=== PATIENT | male | born 1995 | race Caucasian/White ===

== ENCOUNTER 2016-12-06 22:07 | Emergency (ER) | payer MEDICAID, OTHER ==
[~2016-12-06] VITALS: Ht 177.8 cm; Wt 72.6 kg
--- NOTE | 2016-12-06 22:17 | NUR ---
Dr. Aggarwal evaluating patient
[2016-12-06] MEDS ORDERED: PHENYTOIN 1,000 MG in NACL 0.9% 100 ML IV ONE (22:20)
[2016-12-06 22:26] VITALS: BP 109/77
[2016-12-06] MEDS ORDERED: PHENYTOIN 250 MG/5 ML VIAL IV ONE (22:58)
--- NOTE | 2016-12-06 22:59 | NUR ---
[facility] DRAWING PT LABS
[2016-12-06 23:10] LABS: BASOPHILS # (AUTO) 0.3 K/uL (0.00-0.22); BASOPHILS % (AUTO) 3.4 % (0.0-2.0); EOSINOPHILS # (AUTO) 0.4 K/uL (0-0.4); EOSINOPHILS % (AUTO) 5.2 % (0.0-4.0); HEMATOCRIT 48.8 % (36-52); HEMOGLOBIN 16.3 g/dL (12.0-18.0); LYMPHOCYTES # (AUTO) 2.1 K/uL (2.0-11.5); LYMPHOCYTES % (AUTO) 24.2 % (20.5-51.1); MEAN CORPUSCULAR HEMOGLOBIN 31 pg (27-31); MEAN CORPUSCULAR HGB CONC 33 g/dL (33-37); MEAN CORPUSCULAR VOLUME 92 fL (80-94); MONOCYTES # (AUTO) 0.4 K/uL (0.8-1.0); MONOCYTES % (AUTO) 4.3 % (1.7-9.3); NEUTROPHILS # (AUTO) 5.4 K/uL (1.8-7.7); NEUTROPHILS % (AUTO) 62.9 % (42.2-75.2); PLATELET COUNT (AUTO) 273 K/uL (140-450); RED BLOOD CELL COUNT(AUTO) 5.31 MIL/uL (4.20-6.10); RED CELL DISTRIBUTION WIDTH 12.2 % (11.6-13.7); WHITE BLOOD COUNT (AUTO) 8.6 K/uL (4.5-11.0)
--- NOTE | 2016-12-06 23:10 | NUR ---
Pt placed in bed 8 by EMS.
--- NOTE | 2016-12-06 23:30 | NUR ---
Pt taken to CT via [facility]athi.
--- NOTE | 2016-12-06 23:36 | NUR ---
PT RETURN FROM CT
--- NOTE | 2016-12-06 23:36 | NUR ---
Pt returned from CT scan.
--- NOTE | 2016-12-06 23:36 | NUR ---
21/M c/o seizure, tonic clonic lasting appoximately 5 minutes. Per EMS, patient has a hx of seizures with unknown medications. Pt denies hx of seizures. States he was sitting at home in bed watching YouTube videos and next remembers waking up in the ambulance. Pt does not recall the incident. AOX4, clear speech at this time. VSS. Pt states he takes Voltren and Trazadone.
[2016-12-06 23:51] LABS: ANION GAP 16.1 (8-16); CALCIUM 9.3 mg/dL (8.5-10.1); CARBON DIOXIDE 23.7 mmol/L (21-32); POTASSIUM 3.8 mmol/L (3.5-5.1)
[2016-12-06 23:52] LABS: CREATININE 1.2 mg/dL (0.7-1.3)
[2016-12-07] LABS: ALBUMIN 4.6 g/dL (3.4-5.0); TOTAL BILIRUBIN 0.3 mg/dL (0.0-1.0); TOTAL PROTEIN, SERUM 8.7 g/dL (6.4-8.2)
[2016-12-07 00:31] VITALS: BP 94/43
--- NOTE | 2016-12-07 00:43 | NUR ---
Patient discharged with v/s stable. Written and verbal after care instructions given and explained. Patient alert, oriented and verbalized understanding of instructions. Ambulatory with steady gait. All questions addressed prior to discharge. ID band removed. Patient advised to follow up with PMD. Rx of Dilantin given. Patient educated on indication of medication including possible reaction and side effects. Opportunity to ask questions provided and answered.
== END 2016-12-07 00:43 | disposition home or self-care (01) ==
LOC: MED 22:07
DX: G40.909 Epilepsy, unspecified, not intractable, without status epilepticus (principal)
CPT/HCPCS: 36415; 70450; 80053; 85025; 96365; 99285; J1165; J7030

== ENCOUNTER 2017-08-16 16:30 | Emergency (ER) | payer MEDICAID, OTHER ==
[~2017-08-16] VITALS: Ht 172.7 cm; Wt 68.9 kg
[2017-08-16 16:45] VITALS: BP 112/80
--- NOTE | 2017-08-16 16:54 | NUR ---
pt to lobby awaiting avaiable bed. gcs=15. rr are even and unlabored. vss. no acute distress at this time.
--- NOTE | 2017-08-16 17:25 | NUR ---
22Y/M c/o 2nd digit of left hand pain with swelling x 2wks ago s/p stray cat bite.PATIENT STATES PAIN OF 5/10 AT THIS TIME; VSS; PATIENT POSITIONED FOR COMFORT; ER MD MADE AWARE OF PT STATUS.
--- NOTE | 2017-08-16 18:03 | NUR ---
Patient being evaluated by DR NARVAEZ at bedside.
[2017-08-16] MEDS ORDERED: LIDOCAINE 1% 500 MG/50 ML VIAL INJ SCH (18:10)
[2017-08-16] MEDS ORDERED: LIDOCAINE MPF 1% - **ER/OR** 5 ML ONE (18:35)
--- NOTE | 2017-08-16 18:51 | NUR ---
FAX TO [facility] [phone]
--- NOTE | 2017-08-16 19:01 | NUR ---
DR NARVAEZ PERFORMED I&D TO L INDEX FINGER. PT TOLERATED PROCEDURE WELL.
[2017-08-16 19:17] VITALS: BP 101/79
--- NOTE | 2017-08-16 19:17 | NUR ---
Patient discharged with v/s stable. Written and verbal after care instructions given and explained. Patient alert, oriented and verbalized understanding of instructions. Ambulatory with steady gait. All questions addressed prior to discharge. ID band removed. Patient advised to follow up with PMD. Rx of agmentin & tramadol given. Patient educated on indication of medication including possible reaction and side effects. Opportunity to ask questions provided and answered.
== END 2017-08-16 19:17 | disposition home or self-care (01) ==
LOC: MED 16:30
DX: L03.012 Cellulitis of left finger (principal); S61.251A Open bite of left index finger without damage to nail, initial encounter; I10 Essential (primary) hypertension; J45.909 Unspecified asthma, uncomplicated; G40.909 Epilepsy, unspecified, not intractable, without status epilepticus; W55.01XA Bitten by cat, initial encounter; Y93.89 Activity, other specified; Y92.89 Other specified places as the place of occurrence of the external cause; Y99.8 Other external cause status
CPT/HCPCS: 10060; 90471; 90715; 99283; J2001

== ENCOUNTER 2018-06-28 23:25 | Emergency (ER) | payer SELFPAY ==
--- NOTE | 2018-06-28 23:25 | NUR ---
PT WAS BROUGHT IN BY [facility]. PT HAD A SEIZURE PRIOR TO ER. PER [facility] PT STATED HE HAD A TONIC CLONIC SEIZURE PER FAMILY. ER MD MADE AWARE
--- NOTE | 2018-06-28 23:25 | NUR ---
PT REFUSED TO STAY IN THE ER TO BE SEEN. PT REFUSED MEDICAL ADVICE OR CARE FROM THE MEDICAL ER PHYSICIAN. PT STATED HE KNEW WHAT THE CONSEQUENCES FOR LEAVING WITHOUT BEING SEEN BY THE ER MD. PT WAS ALERT AND ORIENTED X 4. HE KNEW HIS NAME, , YEAR, PRESIDENT, WHERE HE WAS. HE STATED HE IS NON COMPLIANT WITH TAKING HIS SEIZURE MEDICATION, KEPPRA. HE STATED HE HAS SEIZURES AND :JUST DEALS WITH THEM THEY COME". [facility] WAS THERE AT [facility], REMOVED HIS IV. ER MD WAS MADE AWARE OF STATUS.
--- NOTE | 2018-06-28 23:25 | NUR ---
Patient BIBA ACLS, transferred to bed 3. RN evaluating patient at bedside.
--- NOTE | 2018-06-28 23:25 | NUR ---
PT REFUSED MEDICAL CARE. ER MADE AWARE.
--- NOTE | 2018-06-28 23:26 | NUR ---
PT REFUSED TO HAVE ER STAFF TAKE VITALS. PER [facility] VSS. PT LWBS. ER MD MADE AWARE OF STATUS.
--- NOTE | 2018-06-28 23:26 | NUR ---
PATIENT LEFT WITHOUT BEING SEEN BY DR. PENA. NO FURTHER CARE PROVIDED FOR PATIENT.
== END 2018-06-28 23:26 | disposition left against medical advice (07) ==
LOC: MED 23:25
DX: R56.9 Unspecified convulsions (principal); Z53.21 Procedure and treatment not carried out due to patient leaving prior to being seen by health care provider